=== PATIENT | female | born 1975 | race Caucasian/White ===

== ENCOUNTER → 2019-05-08 13:40 | Outpatient (BNVA) | payer BC, SELFPAY | PROVIDERS: Family Provider Family Medicine; Visit Provider Nurse Practitioner Psychiatric/Mental Health | DX: F33.2 Major depressive disorder, recurrent severe without psychotic features (principal); F41.1 Generalized anxiety disorder; F43.12 Post-traumatic stress disorder, chronic | CPT/HCPCS: 99214 ==

== ENCOUNTER → 2019-06-06 12:58 | Outpatient (BNVA) | payer BC, SELFPAY | PROVIDERS: Family Provider Family Medicine; Visit Provider Psychiatry & Neurology Psychiatry | DX: F43.12 Post-traumatic stress disorder, chronic (principal); F41.1 Generalized anxiety disorder; F33.2 Major depressive disorder, recurrent severe without psychotic features; F60.9 Personality disorder, unspecified | CPT/HCPCS: 99214 ==

== ENCOUNTER → 2022-08-08 09:57 | Outpatient (BNVA) | payer BC, SELFPAY | PROVIDERS: Family Provider Family Medicine; Visit Provider Podiatrist Foot & Ankle Surgery | DX: M72.2 Plantar fascial fibromatosis (principal) | CPT/HCPCS: 73630 ==

== ENCOUNTER → 2023-02-02 15:49 | Outpatient (BNVA) | payer BC, SELFPAY | PROVIDERS: Family Provider Family Medicine; PCP Family Medicine; Visit Provider Podiatrist Foot & Ankle Surgery | DX: M25.571 Pain in right ankle and joints of right foot (principal); M79.671 Pain in right foot | CPT/HCPCS: 73610; 73620 ==

== ENCOUNTER → 2024-02-20 11:34 | Outpatient (BNVA) | payer BC, MEDICAID, SELFPAY | PROVIDERS: Family Provider Family Medicine; PCP Family Medicine; Visit Provider Podiatrist Foot & Ankle Surgery | DX: S92.334A Nondisplaced fracture of third metatarsal bone, right foot, initial encounter for closed fracture; X58.XXXA Exposure to other specified factors, initial encounter | CPT/HCPCS: 73630 ==

== ENCOUNTER 2024-02-20 12:08 | Outpatient (CLI) | payer BC, MEDICAID, SELFPAY | END 2024-02-20 12:09 | disposition home or self-care (01) | LOC: SPT 12:09 | PROVIDERS: Family Provider Family Medicine; PCP Family Medicine; Visit Provider Podiatrist Foot & Ankle Surgery | DX: Z46.89 Encounter for fitting and adjustment of other specified devices (principal); S99.921D Unspecified injury of right foot, subsequent encounter; S92.331D Displaced fracture of third metatarsal bone, right foot, subsequent encounter for fracture with routine healing; X58.XXXD Exposure to other specified factors, subsequent encounter; M79.671 Pain in right foot | CPT/HCPCS: 97760; L4361 ==

== ENCOUNTER 2024-03-14 12:07 | Outpatient (CLI) | payer BC, MEDICAID, SELFPAY ==
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
== END 2024-03-14 12:08 | disposition home or self-care (01) ==
LOC: RAD 12:09
PROVIDERS: Family Provider Family Medicine; PCP Family Medicine; Visit Provider Podiatrist Foot & Ankle Surgery
DX: S92.331D Displaced fracture of third metatarsal bone, right foot, subsequent encounter for fracture with routine healing (principal); S99.921D Unspecified injury of right foot, subsequent encounter; X58.XXXA Exposure to other specified factors, initial encounter
CPT/HCPCS: 73630

== ENCOUNTER 2024-07-02 13:07 | Emergency (ER) | payer BC, MEDICAID, SELFPAY ==
[2024-07-02 13:13] VITALS: BP 144/89; PULSE 88; TEMP 36.7; O2SAT 98; BMI 24.9
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
[2024-07-02 13:53] VITALS: BP 146/80; PULSE 76; O2SAT 97
[2024-07-02 15:17] VITALS: BP 120/77; PULSE 82; O2SAT 96
== END 2024-07-02 15:18 | disposition home or self-care (01) ==
PROVIDERS: Emergency Provider Physician Assistant; PCP Family Medicine
DX: M54.2 Cervicalgia (principal); M54.9 Dorsalgia, unspecified; V89.2XXA Person injured in unspecified motor-vehicle accident, traffic, initial encounter; Z87.891 Personal history of nicotine dependence
CPT/HCPCS: 72072; 72100; 72125; 99284

== ENCOUNTER → 2024-08-01 14:39 | Outpatient (BNVA) | payer BC, MEDICAID, SELFPAY | PROVIDERS: PCP Family Medicine; Visit Provider Podiatrist Foot & Ankle Surgery | DX: L60.8 Other nail disorders (principal); M25.572 Pain in left ankle and joints of left foot | CPT/HCPCS: 73610 ==

== ENCOUNTER → 2024-08-13 13:46 | Outpatient (BNVA) | payer BC, MEDICAID, SELFPAY | PROVIDERS: PCP Family Medicine; Visit Provider Podiatrist Foot & Ankle Surgery | DX: M79.672 Pain in left foot (principal); M25.572 Pain in left ankle and joints of left foot; Z98.890 Other specified postprocedural states | CPT/HCPCS: 73630 ==

== ENCOUNTER 2024-10-03 13:47 | Outpatient (CLI) | payer BC, MEDICAID, SELFPAY ==
--- NOTE | 2024-10-03 13:45 | MRR_ITS ---
PROCEDURE INFORMATION: Exam: MR Left Lower Extremity Joint Without Contrast; Ankle Exam date and time: 10/03/2024 2:00 PM Age: 49 years old Clinical indication: Left; Ankle pain and instability multiple falls after rolling ankle; Additional info: Eval the atfl for possible tear, eval all ankle ligaments TECHNIQUE: Imaging protocol: Magnetic resonance imaging of the left lower extremity without contrast. Exam focused on the ankle. COMPARISON: CR XR foot LT min 3V* [id number] 08/13/2024 1:53 PM FINDINGS: Bones/joints: There is bone marrow edema involving the talar neck. There is a subtle irregular linear focus of low T1 and high T2 signal intensity in the talar neck involving the articular cortex and subarticular bone of the distal calcaneus at the calcaneocuboid joint. Ankle joint alignment is normal. No joint effusion. LIGAMENTS: Distal tibiofibular syndesmosis: Unremarkable. No tear. Anterior talofibular ligament: The anterior talofibular ligament is not clearly visible and there is no edema at the expected position of the ligament. Posterior talofibular ligament: Posterior talofibular ligament is intact. Calcaneofibular ligament: Calcaneofibular ligament is poorly visualized. Deltoid ligament complex: The deltoid ligament is intact. TENDONS: Flexor tendons of foot: Unremarkable as visualized. Tibialis posterior tendon: Unremarkable as visualized. Peroneal tendons: There is focal increased intrasubstance T2 signal intensity and mild enlargement of the peroneus longus tendon is tendon at and just below the level of the lateral malleolus. Peroneal brevis tendon is normal. Extensor tendons of foot: Unremarkable as visualized. Tibialis anterior tendon: Unremarkable as visualized. Achilles tendon: The Achilles tendon is normal. Tarsal canal (Sinus tarsi): The tarsal sinus is normal. Tarsal tunnel: The tarsal tunnel is normal. Soft tissues: Unremarkable. Plantar fascia: Marked edema in the central and medial portion of the plantar fascia near the calcaneal insertion. No associated bone marrow edema at the plantar fascial insertion on the calcaneus. MR/MR ankle LT wo con* [id number] IMPRESSION: 1. Nondisplaced intra-articular fracture of the distal calcaneus at the calcaneocuboid joint. 2. 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 3. Nondiagnostic evaluation of the calcaneal fibular ligament. 4. Peroneus longus tendinitis. 5. Plantar fasciitis.
== END 2024-10-03 13:48 | disposition home or self-care (01) ==
LOC: RAD 13:48
PROVIDERS: PCP Family Medicine; Visit Provider Podiatrist Foot & Ankle Surgery
DX: S92.065A Nondisplaced intraarticular fracture of left calcaneus, initial encounter for closed fracture (principal); M76.72 Peroneal tendinitis, left leg; M72.2 Plantar fascial fibromatosis; W19.XXXA Unspecified fall, initial encounter; R29.6 Repeated falls
CPT/HCPCS: 73721

== ENCOUNTER → 2024-12-23 14:29 | Outpatient (BNVA) | payer BC, MEDICAID, SELFPAY | PROVIDERS: PCP Family Medicine; Visit Provider Podiatrist Foot & Ankle Surgery | DX: M25.571 Pain in right ankle and joints of right foot (principal); M25.572 Pain in left ankle and joints of left foot; M25.372 Other instability, left ankle; M77.41 Metatarsalgia, right foot; M24.573 Contracture, unspecified ankle; G89.29 Other chronic pain | CPT/HCPCS: 73610 ==

== ENCOUNTER 2025-01-09 13:33 | Outpatient (CLI) | payer BC, MEDICAID, SELFPAY ==
--- NOTE | 2025-01-09 13:45 | MRR_ITS ---
PROCEDURE INFORMATION: Exam: MR Right Lower Extremity Without Contrast; Forefoot Exam date and time: 01/09/2025 2:02 PM Age: 49 years old Clinical indication: Pain; Foot; Right; Additional info: Eval for stress fracture or neuroma. Pain in forefoot. No specific injury TECHNIQUE: Imaging protocol: MR of the right foot without contrast. Exam focused on the forefoot. COMPARISON: CR XR foot RT min 3V* [id number] 03/14/2024 12:16 PM FINDINGS: Bones/joints: There is no acute reactive marrow edema identified. There is no periostitis. There is no fracture. The joint spaces are maintained. There is no joint effusion. LIGAMENTS: Collateral ligaments of digits: Unremarkable. No evidence of tear. TENDONS: Flexor tendons of foot: There is mild intramuscular edema within the lateral head of the flexor hallucis brevis muscle. Extensor tendons of foot: Unremarkable. No evidence of tear. Bursae: There is a small amount of fluid within the intermetatarsal bursa between the heads of the 3rd and 4th metatarsal. Soft tissues: There is no organized drainable fluid collection or soft tissue mass. MR/MR foot RT wo con* [id number] IMPRESSION: 1. Grade 1 muscle strain of the lateral head of the flexor hallucis brevis muscle. 2. Mild intermetatarsal bursitis between the head of the 3rd and 4th metatarsal.
== END 2025-01-09 13:34 | disposition home or self-care (01) ==
LOC: RAD 13:34
PROVIDERS: PCP Family Medicine; Visit Provider Podiatrist Foot & Ankle Surgery
DX: M77.41 Metatarsalgia, right foot (principal)
CPT/HCPCS: 73718

== ENCOUNTER → 2025-01-13 12:48 | Outpatient (BNVA) | payer BC, MEDICAID, SELFPAY | PROVIDERS: PCP Family Medicine; Visit Provider Podiatrist Foot & Ankle Surgery | DX: S99.912A Unspecified injury of left ankle, initial encounter (principal); S96.812A Strain of other specified muscles and tendons at ankle and foot level, left foot, initial encounter; M25.372 Other instability, left ankle; M24.572 Contracture, left ankle; S93.402A Sprain of unspecified ligament of left ankle, initial encounter; M25.571 Pain in right ankle and joints of right foot; M77.41 Metatarsalgia, right foot; X58.XXXA Exposure to other specified factors, initial encounter | CPT/HCPCS: 73610 ==

== ENCOUNTER 2025-01-24 10:49 | Day surgery (SDC) | payer BC, MEDICAID, SELFPAY ==
[2025-01-24] VITALS (9 sets, daily range): BP systolic 111–144; BP diastolic 61–74; PULSE 99–125; RESP 16–18; TEMP 36.1–36.2; O2SAT 97–100; BMI 26.2
--- NOTE | 2025-01-24 12:05 | P.HPUD_ITS ---
Surgery/Procedure H&P Update DATE OF PROCEDURE: January 24, 2025 DATE H&P PERFORMED: 01/21/25 H&P UPDATE INFORMATION: I have reviewed H&P completed within last 30 days, I have examined patient prior to procedure, No changes to prior documentation, H&P is in [facility] EMR on date indicated and Risks and benefits of the procedure reviewed PREOP DIAGNOSIS: Left ankle instability PLANNED PROCEDURE: Operation Date: 01/24/25 12:30 Proposed Procedures p Left modified Brostr?m(Left) - PRABHU Whalen peroneal longus tendon repair(Left) - PRABHU Whalen Ankle Arthroscopy(Left) - PRABHU Whalen Neuroplasty left sural nerve and stress views left ankle(Left) - Nathan Munoz DPM
[2025-01-24] MEDS: ceFAZolin 2,000 mg SDV 2000 MG IVP (12:41)
--- NOTE | 2025-01-24 13:05 | PC.NURSE ---
1225- Time out completed at bedside with BRENT Hawthorne and karely. Popilatel block completed via ultrasound guidance. Pt tolerated procedure well. Vitals signs remained stable. Pt continues to be monitored post block. Vitals signs during block as follows- 81,100% 2L N/C, 127/86, during, 98, 99% 2L N/C, 146/82.
[2025-01-24] MEDS: BUPivacaine 0.5% INJ 10 mL INJECTION (13:09)
[2025-01-24] MEDS: lidocaine-epi 1% 20 mL INJ INJECTION (13:27)
--- NOTE | 2025-01-24 13:30 | P.OP_ITS ---
Operative Report Date of procedure: January 24, 2025 Pre-op diagnosis: Chronic pain of left ankle M25.572; G89.29 Left ankle instability M25.372 Equinus contracture of ankle M24.573 Injury of left ankle S99.912A Left ankle sprain S93.402A Left peroneal tendon tear S96.812A Left sural neuritis G57.32 Post-op diagnosis: Chronic pain of left ankle M25.572; G89.29 Left ankle instability M25.372 Injury of left ankle S99.912A Left ankle sprain S93.402A Left peroneal tendon tear S96.812A Left sural neuritis G57.32 Procedure done: 1) left modified Brostr?m CPT code 64154 2) left peroneal longus tendon repair. CPT code 32607 3) left ankle arthroscopy. CPT code 99814 4) neuroplasty left sural nerve. CPT code 98097 5) stress views left ankle. CPT code 50486 Implants: Arthrex internal brace 2.04 modified Brostr?m. 2-0 Vicryl, 3-0 Vicryl, 4-0 nylon Specimens removed/disposition: None Pathology: none Surgeon: Nathan Munoz DPM Distribution Superintendent: Henry Estimated blood loss: 2 see intraoperative documentation IV fluids: See intraoperative documentation Urine output: No urine output Complications: No complications Brief History: Patient complains of reoccurring ankle instability left ankle ATFL shows to be chronically torn on MRI with peroneal longus tendinitis. Reviewed MRI findings with patient at length as well as ancillary findings of calcaneal fracture at the anterior process and plantar fasciitis. Her chief complaint is the ATFL and peroneal tendons would like to discuss surgical options as it has failed to respond to conservative measures for greater than 8 weeks. Discussed peroneal tendon repair possibly and modified Brostr?m and ankle scope left lower extremity. I reviewed at length with the patient, the risks, potential complications, benefits, alternatives, expectations, and typical outcomes associated with the surgery. The risks and potential complications were explained in detail, including but not limited to infection, wound dehiscence or soft tissue complications, bleeding and hematoma, chronic edema, neuritis or nerve damage producing numbness or chronic pain, CRPS, failure to relieve pain or worsening pain, thick / painful / unsightly scar, limited motion / stiffness, malposition, delayed union, malunion, or nonunion, fracture, reaction to implants, anesthetic complications, venous thromboembolism, and deformity recurrence. I discussed the notion of no regrets with the patient as it pertains to complications and outcomes. The patient seemed to understand the nature of the proposed care and required convalescence. They asked appropriate questions, answered to their satisfaction. They are aware no guarantees can be made as to a satisfactory outcome and they understand there may be other possible unforeseen complications or outcomes not listed here that will be treated accordingly if they arise. There were no written or implied guarantees given to the patient. They gave informed consent to proceed. Procedure: Under mild sedation the patient was brought to the operating room and remained on the gurney in supine position. A timeout was performed. Of note, left popliteal block performed preoperatively per anesthesia. Anesthesia was then ad ministered by the anesthesia service. High calf tourniquet applied to the left lower extremity. Left lower extremity was scrubbed, prepped and draped utilizing normal aseptic technique. Left foot and ankle were exanguinated with an Esmarch bandage and tourniquet inflated to 250 mmHg. 1. Sural Nerve Neuroplasty: A curvilinear incision was made over the lateral aspect of the ankle, extending from the distal fibula across the sinus tarsi. The initial dissection was carried down through the skin and subcutaneous tissues. The sural nerve was identified, carefully isolated, and protected. Significant perineural fibrosis was noted along its course. An external neurolysis was performed, carefully dissecting the nerve free from surrounding scar tissue using sharp and blunt dissection to release impingement. 2. Peroneal Longus Tendon Exploration and Repair: The peroneal tendons were identified and the peroneal retinaculum was incised. Inspection revealed a peroneal longus tendon tear consistent with a split longitudinal bucket-handle tear located at the level of the fibular tip. The frayed edges of the tear were debrided. The tendon was then tubularized using a running, locking stitch of 3-0 Vicryl to restore its integrity and gliding capacity. The peroneal brevis tendon was inspected and found to be intact. 3. Modified Brostr?m and Internal Brace Augmentation: The underlying lateral ankle ligaments were exposed. The anterior talofibular ligament (ATFL) was identified. A direct repair of the ATFL was performed using a strong, non- absorbable 2-0 Vicryl suture in a modified Krackow technique. The capsular tissue and lytton ligament were reattached to the distal fibula. Next, the ligament repair was augmented using the Arthrex Internal Brace 2.0 system. Drill holes were placed according to the senior radiation therapist's technique into the talus and fibula. The high-strength suture tape was tensioned and secured, providing robust static stabilization to the lateral ankle joint. 4. Retinaculum Repair and Layered Closure: The deep fascial and soft tissue layers were closed. The peroneal retinaculum was repaired and imbricated with 2- 0 Vicryl sutures to prevent subluxation of the repaired peroneal tendons. The subcutaneous layer was closed with deep dermal sutures. The skin incision was closed using 4-0 Nylon sutures, achieving excellent approximation. 5. Postoperative Assessment and Stabilization: Prior to final dressing application, fluoroscopic stress views of the left ankle were performed, confirming no residual talar tilt or instability. The foot and ankle were dressed with sterile gauze and soft padding. A Controlled Ankle Motion (CAM) boot was applied to the left lower extremity in a neutral position. The patient tolerated the procedure well. Tourniquet was released at 8:55 AM with immediate reperfusion of the extremity. No complications were encountered. The patient was transported to Post-Anesthesia Care Unit (PACU) in stable condition.
--- NOTE | 2025-01-24 13:30 | W.PM.BPON ---
Date of Procedure: 06/09/23 Surgeon: Nathan Munoz DPM Import Dispatcher(s): Bridgette Procedure(s) performed: Left ankle arthroscopy with debridement, left peroneal tendon repair, left modified Brostr?m Findings of the procedure(s): Left ATFL tear and left peroneal tendon tear Estimated blood loss: 2 mL Specimen(s) removed: No specimens Post-operative diagnosis: Left lateral ankle instability
--- NOTE | 2025-01-24 14:50 | ANE.PACU2 ---
Inpatient post-anesthesia follow up: Airway intact: Yes Vital signs: Temperature 97 F Pulse Rate 99 Respiratory Rate 16 Blood Pressure 130/74 Pulse Oximetry 100 Oxygen Delivery Me thod Room Air Oxygen Flow Rate Fraction of Inspir ed Oxygen Hydration adequate: Yes Nausea and vomiting: No Pain level: 1 Mental status: Baseline
--- NOTE | 2025-01-24 16:06 | ANES.PREANE2 ---
Pre-Anesthetic Assessment Height/Weight: Height 1.7 m Weight 75.75 kg Temp Pulse Resp BP Pulse Ox O2 Del Method 97 F L 99 16 130/74 100 Room Air 01/24/25 14:24 01/24/25 14:24 01/24/25 14:24 01/24/25 14:24 01/24/25 14:24 01/24/25 14:24 Preop Diagnosis: Left ankle instability Operation Date: 01/24/25 12:30 Proposed Procedures p Left modified Brostr?m(Left) - Nathan Munoz DPM s peroneal longus tendon repair(Left) - PRABHU Whalen Ankle Arthroscopy(Left) - PRABHU Whalen Neuroplasty left sural nerve and stress views left ankle(Left) - Nathan Munoz DPM Familial anesthetic complications: none Last intake: Intake Last Liquid Date 01/24/25 Last Liquid Time 06:00 Last Solid Date 01/23/25 Last Solid Time 20:00 Exam alert, oriented x 3, clear to auscultation bilaterally and regular rate & rhythm GI Gastroesophageal Reflux Disease Anesthetic Plan ASA status: 2 Anesthesia: General and Regional (specify below) Risk of > 500 ml blood loss (7ml/kg in children): No Medications/Allergies Home Medications ?Medication ?Instructions ?Recorded ?Confirmed ?Last Taken ?Type bupropion HCl 300 mg 24 hr tablet, 300 mg PO QAM 07/02/24 01/23/25 01/22/25 History extended release cetirizine 10 mg tablet 10 mg PO DAILY 07/02/24 01/23/25 01/22/25 History citalopram 10 mg tablet 10 mg PO DAILY 07/02/24 01/23/25 01/23/25 History ergocalciferol (vitamin D2) 1,250 1,250 mcg PO Q7D 07/02/24 01/23/25 01/23/25 History mcg (50,000 unit) capsule estradiol 1 mg tablet 1 mg PO DAILY 07/02/24 01/23/25 01/23/25 History linaclotide 145 mcg capsule 145 mcg PO DAILY 07/02/24 01/23/25 01/22/25 History (Linzess) methocarbamol 500 mg tablet 500 mg PO TID 07/02/24 01/23/25 01/24/25 History oxycodone-acetaminophen 7.5 mg-325 1 tab PO QID 07/02/24 01/23/25 01/24/25 History mg tablet pantoprazole 40 mg tablet,delayed 40 mg PO BID 07/02/24 01/23/25 01/24/25 History release ropinirole 2 mg tablet 2 mg PO DAILY 07/02/24 01/23/25 01/23/25 History solifenacin 5 mg tablet 5 mg PO DAILY 07/02/24 01/23/25 01/23/25 History sucralfate 1 gram tablet 1 g PO QID 07/02/24 01/23/25 01/23/25 History sumatriptan succinate 100 mg tablet 100 mg PO PRN PRN Migraine Headache 07/02/24 01/23/25 Unknown History triamcinolone acetonide 0.1 % 1 applic topical BID 07/02/24 01/23/25 Unknown History topical ointment silver sulfadiazine 1 % topical 1 applic topical BID 2 weeks #50 08/01/24 01/23/25 Unknown Rx cream grams erenumab-aooe 140 mg/mL 01/23/25 Unknown History subcutaneous auto-injector (Aimovig Autoinjector) Allergies Allergy/AdvReac Type Severity Reaction Status Date / Time erythromycin base Allergy Unknown Verified 01/23/25 09:48 [facility] Anesthesia Medical History Chronic post-traumatic stress disorder Generalized anxiety disorder Major depressive disorder, recurrent severe without psychotic features Social History Smoking and tobacco/nicotine status: former use of tobacco/nicotine Second hand smoke exposure: Yes Anesthesia Procedures Nerve Block Nerve Block 1: Main Anesthesia: general anesthesia Time Out Performed: Yes Consent: requested by attending/covering physician, from patient, from other, risks and benefits reviewed and patient agrees to proceed Nerve block location: popliteal (L) Anesthesia monitors applied: pulse oximetry, EKG, BP cuff and oxygen Nerve block position: supine Anesthetic Used: ropivicaine 0.5% (25 ml) and with decadron (4 mg) Ultrasound used to: recognize landmarks Nerve Stimulator Used?: No Interscalene/Femoral BLK: 4 stimuplex 21 g needle used for position and inplane approach, visualize local anesthetic spread and no vascular puncture identified Injection: neg aspiration of heme Patient Tolerated Procedure: well Complications: none
--- NOTE | 2025-02-10 17:49 | PM.OPSURHP ---
Providers/Chief Complaint Primary Care Provider: Keira Curiel DO Chief Complaint: M25.572 History of Present Illness Esperanza Alberto is a 49 year old female surgical consult to left ankle Review of Systems General: Reports: 10 or more systems reviewed and unremarkable except in HPI and below Const: Denies: fever(s) or chills Eyes: Denies: change in vision Card: Denies: chest pain or palpitations Resp: Denies: dyspnea or productive cough GI: Denies: abdominal pain, nausea or vomiting : Denies: flank pain Musc: Reports: extremity pain, joint pain, joint stiffness, limited range of motion and deformity Skin/Breast: Reports: skin tenderness; Denies: rash Neuro: Reports: difficulty walking; Denies: numbness in extremities, sensory changes or frequent falls Psych: Denies: suicidal ideation Adriel/Lymph: Denies: easy bruising Medications/Allergies Home Medications ?Medication ?Instructions ?Recorded ?Confirmed ?Last Taken ?Type bupropion HCl 300 mg 24 hr tablet, 300 mg PO QAM 07/02/24 02/10/25 01/22/25 History extended release cetirizine 10 mg tablet 10 mg PO DAILY 07/02/24 02/10/25 01/22/25 History citalopram 10 mg tablet 10 mg PO DAILY 07/02/24 02/10/25 01/23/25 History ergocalciferol (vitamin D2) 1,250 1,250 mcg PO Q7D 07/02/24 02/10/25 01/23/25 History mcg (50,000 unit) capsule estradiol 1 mg tablet 1 mg PO DAILY 07/02/24 02/10/25 01/23/25 History linaclotide 145 mcg capsule 145 mcg PO DAILY 07/02/24 02/10/25 01/22/25 History (Linzess) methocarbamol 500 mg tablet 500 mg PO TID 07/02/24 02/10/25 01/24/25 History oxycodone-acetaminophen 7.5 mg-325 1 tab PO QID 07/02/24 02/10/25 01/24/25 History mg tablet pantoprazole 40 mg tablet,delayed 40 mg PO BID 07/02/24 02/10/25 01/24/25 History release ropinirole 2 mg tablet 2 mg PO DAILY 04/11/1802/10/25 01/23/25 History solifenacin 5 mg tablet 5 mg PO DAILY 07/02/24 02/10/25 01/23/25 History sucralfate 1 gram tablet 1 g PO QID 07/02/24 02/10/25 01/23/25 History sumatriptan succinate 100 mg tablet 100 mg PO PRN PRN Migraine Headache 07/02/24 02/10/25 Unknown History triamcinolone acetonide 0.1 % 1 applic topical BID 07/02/24 02/10/25 Unknown History topical ointment silver sulfadiazine 1 % topical 1 applic topical BID 2 weeks #50 08/01/24 02/10/25 Unknown Rx cream grams erenumab-aooe 140 mg/mL 01/23/25 02/10/25 Unknown History subcutaneous auto-injector (Aimovig Autoinjector) Allergies Allergy/AdvReac Type Severity Reaction Status Date / Time erythromycin base Allergy Unknown Verified 01/23/25 09:48 PFSH PFSH: Medical History (Updated 02/10/25 @ 17:51 by Nathan Munoz DPM) Chronic post-traumatic stress disorder Generalized anxiety disorder Major depressive disorder, recurrent severe without psychotic features Social History Smoking and tobacco/nicotine status: former use of tobacco/nicotine Second hand smoke exposure: Yes Vital Signs Vitals Signs: Last Vital Signs Temp 97 F L 01/24/25 14:24 Pulse 99 01/24/25 14:24 Resp 16 01/24/25 14:24 BP 130/74 01/24/25 14:24 Pulse Ox 100 01/24/25 14:24 O2 Del Method Room Air 01/24/25 14:24 Physical Exam Narrative: EXAM NARRATIVE: GENERAL: Patient is alert and oriented ?3 and in no acute distress. The following is a focused bilateral lower extremity exam. VASCULAR: Dorsalis pedis and posterior tibial arteries palpable +2. Capillary refill time less than 3 seconds to the distal hallux bilaterally. Calf is supple and nontender proximally and distally. No pedal edema appreciated. Pedal hair growth present. NEUROLOGICAL: Epicritic and protopathic sensations grossly intact to the lower extremities. +2 Achilles tendon reflex noted bilaterally. Negative Tinel sign upon percussion of lower extremity nerves. DERMATOLOGICAL: New epithelization at left great toe, no erythema warmth, wounds or drainage. MUSCULOSKELETAL: Pain to palpation at left lateral ankle fibula and ATFL. Pain to palpation at the medial band of the plantar fascia near its origin left and right heel. No palpable mass along the course of the plantar fascia appreciated. No pain to palpation along the course of the bilateral Achilles tendon. No pain to palpation along the course posterior tibial tendon or peroneal tendons. No pain with [id number] compression of calcaneus, bilaterally. Muscle strength is 5/5 in all 3 cardinal planes pain-free without guarding to the foot and ankle, bilaterally. Ankle joint dorsiflexion 5 degrees beyond neutral bilaterally. CARDIOVASCULAR: S1, S2, normal rate, normal rhythm. Dorsalis pedis and posterior tibial arteries palpable. LUNGS: Clear to auscltation, no use of acessory muscles, no crackles or wheezes. Data Other data: Ordering Provider/Ordering MD: Nathan Munoz DPM Date of Service: 10/03/24 Procedure(s): MR ankle LT wo con* [id number] Accession Number(s): [id number] Report Number: [id number] MR/MR ankle LT wo con* [id number] IMPRESSION: 1. Nondisplaced intra-articular fracture of the distal calcaneus at the calcaneocuboid joint. 2. 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 3. Nondiagnostic evaluation of the calcaneal fibular ligament. 4. Peroneus longus tendinitis. 5. Plantar fasciitis. Dictated By: Allen Meier MD Signed By: Allen Meier MD A&P Assessment and plan 1. Left ankle instability: 2. Left ankle sprain: 3. Tear of peroneal tendon of left foot: 4. Plantar fasciitis: Plan: Patient complains of reoccurring ankle instability left ankle ATFL shows to be chronically torn on MRI with peroneal longus tendinitis. Reviewed MRI findings with patient at length as well as ancillary findings of calcaneal fracture at the anterior process and plantar fasciitis. Her chief complaint is the ATFL and peroneal tendons would like to discuss surgical options as it has failed to respond to conservative measures for greater than 8 weeks. Discussed peroneal tendon repair possibly and modified Brostr?m and ankle scope left lower extremity. I reviewed at length with the patient, the risks, potential complications, benefits, alternatives, expectations, and typical outcomes associated with the surgery. The risks and potential complications were explained in detail, including but not limited to infection, wound dehiscence or soft tissue complications, bleeding and hematoma, chronic edema, neuritis or nerve damage producing numbness or chronic pain, CRPS, failure to relieve pain or worsening pain, thick / painful / unsightly scar, limited motion / stiffness, malposition, delayed union, malunion, or nonunion, fracture, reaction to implants, anesthetic complications, venous thromboembolism, and deformity recurrence. I discussed the notion of no regrets with the patient as it pertains to complications and outcomes. The patient seemed to understand the nature of the proposed care and required convalescence. They asked appropriate questions, answered to their satisfaction. They are aware no guarantees can be made as to a satisfactory outcome and they understand there may be other possible unforeseen complications or outcomes not listed here that will be treated accordingly if they arise. There were no written or implied guarantees given to the patient. They gave informed consent to proceed. Left modified Brostr?m, peroneal tendon repair and ankle scope scheduled January 24, 2025 outpatient, popliteal block, Arthrex, mini C arm, 60 minutes. PDMP PDMP Reviewed: Not Reviewed Coding Level of Care Code Acute Code for Chg Fwd Diagnoses Left ankle instability M25.372 Left ankle sprain S93.402A Tear of peroneal tendon of left foot S86.312A Plantar fasciitis M72.2
== END 2025-01-24 14:54 | disposition home or self-care (01) ==
PROVIDERS: PCP Family Medicine; Visit Provider Podiatrist Foot & Ankle Surgery
PROC: (CPT 27698; principal; 2025-01-24 12:20)
PROC: (CPT 28261; 2025-01-24 12:20)
PROC: (CPT 27698; 2025-01-24 12:20)
PROC: (CPT 64708; 2025-01-24 12:20)
DX: M25.372 Other instability, left ankle (principal); M24.573 Contracture, unspecified ankle; S93.402A Sprain of unspecified ligament of left ankle, initial encounter; S96.812A Strain of other specified muscles and tendons at ankle and foot level, left foot, initial encounter; X58.XXXA Exposure to other specified factors, initial encounter; G57.32 Lesion of lateral popliteal nerve, left lower limb; K21.9 Gastro-esophageal reflux disease without esophagitis; Z79.891 Long term (current) use of opiate analgesic; F43.10 Post-traumatic stress disorder, unspecified; F33.9 Major depressive disorder, recurrent, unspecified; Z87.891 Personal history of nicotine dependence; G89.18 Other acute postprocedural pain
CPT/HCPCS: 27698; 27659; 29898; 64704; 77071; C1713; J0690; J1100; J2250; J2405; J2704; J2795; J3010; J3490; J7030; J9999